=== PATIENT | male | born 1945 | race Caucasian/White ===

== ENCOUNTER 2017-01-18 10:47 | Inpatient (IN) | payer MEDICARE ==
[~2017-01-18] VITALS: Ht 185.4 cm; Wt 97.6 kg
[~2017-01-18 10:47] MED LIST: ASPI-612 PO; CIPR500T94 PO; LOVA40TA2 PO; MULT-460 PO; NAPR-677 PO; TAMS0.4C97 PO
[2017-01-18] MEDS ORDERED: IV NORMAL SALINE 1000ML BAG 1,000 ML IV SCH (11:01)
[2017-01-18 11:13] LABS: BASO % 1 % (0-3); EOS % 1 % (0-3); HEMATOCRIT 50.4 % (39.0-53.0); HEMOGLOBIN 16.6 g/dL (13.0-17.5); LYMPH # 2.5 x10^3/uL (1.0-4.8); LYMPH % 33 % (24-48); MEAN CORPUSCULAR HEMOGLOBIN 32 pg (25-35); MEAN CORPUSCULAR HGB CONC 33 g/dL (31-37); MEAN CORPUSCULAR VOLUME 96 fL (79-100); MONO % 8 % (0-9); NEUT % 57 % (31-73); PLATELET COUNT 243 x10^3/uL (140-400); RED BLOOD COUNT 5.25 x10^6/uL (4.30-5.70); RED CELL DISTRIBUTION WIDTH 13.4 % (11.5-14.5); WHITE BLOOD COUNT 7.4 x10^3/uL (4.0-11.0)
[2017-01-18] MEDS ORDERED: ASPIRIN CHEWABLE 81 MG TABLET. PO ONE (11:15)
[2017-01-18] MEDS ORDERED: 0.9 % SODIUM CHLORIDE 10 ML DISP.SYRIN. IV PRN (11:15)
--- NOTE | 2017-01-18 11:22 | RAD ---
Portable chest, 01/18/2017: History: Syncope on exertion Comparison is made to a study from 08/02/2015. A left-sided transvenous pacemaker remains in place with 2 leads extending into the right heart. The heart size and pulmonary vascularity are normal. No pulmonary infiltrates are seen. There is no evidence of pleural fluid. IMPRESSION: No acute cardiopulmonary abnormality is detected.
--- NOTE | 2017-01-18 11:25 | EKG ---
[facility] [address] [place] [address] Test Date: 2017-01-18 Test Time: 10:51:06 Pat Name: KELLY FAULKNER Department: Room: Gender: M Plant Guide: : 1945 Requested By: MACKENZIE GARZA Order Number: [id number] Reading MD: Franco Callahan MD Measurements Intervals [place] Rate: 73 P: 56 [place]: 196 QRS: 96 QRSD: 102 T: 83 QT: 416 QTc: 462 Interpretive Statements SINUS RHYTHM NON-SPECIFIC ST/T CHANGES Electronically Signed On 01-18-2017 16:07:32 MANAGER SEARCH ENGINE by Franco Callahan MD
[2017-01-18 11:31] LABS: CALCIUM 9.8 mg/dL (8.5-10.1); CREATININE 1.1 mg/dL (0.7-1.3); GFR 66.4; POTASSIUM 4.2 mmol/L (3.5-5.1)
[2017-01-18 11:34] LABS: ALBUMIN 3.8 g/dL (3.4-5.0); DIRECT BILIRUBIN 0.1 mg/dL (0.0-0.2); MAGNESIUM 2.1 mg/dL (1.8-2.4); TOTAL BILIRUBIN 0.8 mg/dL (0.2-1.0); TOTAL PROTEIN 7.6 g/dL (6.4-8.2)
[2017-01-18 11:46] LABS: CKMB MASS 1.1 ng/mL (0.0-3.6)
--- NOTE | 2017-01-18 11:48 | PHYS DOC ---
Past Medical History Past Medical History: High Cholesterol, Prostatitis Additional Past Medical Histor: syncope/sensitive vasovagal responses; nonsustained Vtach Past Surgical History: Tonsillectomy, TURP Additional Past Surgical Histo: Pacemaker, rotator cuff rx, bonita sx Alcohol Use: Occasionally Drug Use: None Adult General Chief Complaint Chief Complaint: Palpitations HPI HPI Patient is a pleasant 71-year-old male with a history of palpitations and cardiac disease presenting after during a Lexiscan stress test here in the hospital referred to the emergency department for question will palpitations and near-syncope. Patient develops and near-syncopal episode while exercising Lexiscan stress test. On the conclusion of the test patient's family went to the cafeteria to ingested food when he became lightheaded and dizzy and having palpitations with a heart rate greater than 180 while in the seated position. Patient did note some dyspnea with a sensation of palpitations and the palpitations have improved over time. The palpitations the pain was essentially located over the left breast with no radiation to the neck back and shoulder. He denies any numbness tingling or weakness, no nausea no vomiting no headache no focal neurologic deficits, no fevers no chills no URI symptoms. Patient had a pacemaker placed for symptom and bradycardia which is why he is being followed by cardiology. During the stress test it was evident that the pacemaker was actually capturing and overdrive pacing based on heart rate Review of Systems Review of Systems Constitutional: Denies fever or chills [] Eyes: Denies change in visual acuity, redness, or eye pain [] HENT: Denies nasal congestion or sore throat [] Respiratory: Denies cough he did complain of mild shortness of breath with the palpitations when it occurred. Cardiovascular: No additional information not addressed in HPI [] GI: Denies abdominal pain, nausea, vomiting, bloody stools or diarrhea [] : Denies dysuria or hematuria [] Musculoskeletal: Denies back pain or joint pain [] Integument: Denies rash or skin lesions [] Neurologic: Denies headache, he did complain of a near syncope with palpitations. Endocrine: Denies polyuria or polydipsia [] All other systems were reviewed and found to be within normal limits, except as documented in this note. Current Medications Current Medications Current Medications Medications (Trade) Dose Ordered Sig/Michele Start Time Stop Time Status Last Admin Dose Admin Aspirin (Children'S Aspirin) 324 mg 1X ONCE 01/18/17 11:15 01/18/17 11:16 DC 01/18/17 11:23 324 MG Ondansetron HCl (Zofran) 4 mg PRN Q8HRS PRN 01/18/17 12:30 01/19/17 12:29 Sodium Chloride 1,000 ml @ 100 mls/hr Q10H 01/18/17 12:28 01/19/17 12:27 Sodium Chloride (Normal Saline Flush) 10 ml QSHIFT PRN 01/18/17 11:15 Allergies Allergies Allergies Coded Allergies Type Severity Reaction Last Updated Verified No Known Drug Allergies 04/20/15 No Physical Exam Physical Exam Vital signs noted on the chart patient vital signs normal with exception of hypertension. Constitutional: Well developed, well nourished, no acute distress, non-toxic appearance. [] HENT: Normocephalic, atraumatic, bilateral external ears normal, oropharynx moist, no oral exudates, nose normal. [] Eyes: PERRLA, EOMI, conjunctiva normal, no discharge. [] Neck: Normal range of motion, no tenderness, supple, no stridor. [] Cardiovascular:Heart rate regular rhythm, no murmur no gallops or rubs Lungs & Thorax: Bilateral breath sounds clear to auscultation [] Abdomen: Bowel sounds normal, soft, no tenderness, no masses, no pulsatile masses. [] Skin: Warm, dry, no erythema, no rash. [] Back: No tenderness, no CVA tenderness. [] Extremities: No tenderness, no cyanosis, no clubbing, ROM intact, no edema. [] Neurologic: Alert and oriented X 3, normal motor function, normal sensory function, no focal deficits noted. [] Psychologic: Affect normal, judgement normal, mood normal. [] Current Patient Data Vital Signs Vital Signs Date Time Temp Pulse Resp B/P (MAP) Pulse Ox O2 Delivery O2 Flow Rate FiO2 01/18/17 10:48 97.6 78 18 140/92 (108) 100 Room Air 97.6 Lab Values Laboratory Tests Test 01/18/17 11:00 White Blood Count 7.4 x10^3/uL (4.0-11.0) Red Blood Count 5.25 x10^6/uL (4.30-5.70) Hemoglobin 16.6 g/dL (13.0-17.5) Hematocrit 50.4 % (39.0-53.0) Mean Corpuscular Volume 96 fL (79-100) Mean Corpuscular Hemoglobin 32 pg (25-35) Mean Corpuscular Hemoglobin Concent 33 g/dL (31-37) Red Cell Distribution Width 13.4 % (11.5-14.5) Platelet Count 243 x10^3/uL (140-400) Neutrophils (%) (Auto) 57 % (31-73) Lymphocytes (%) (Auto) 33 % (24-48) Monocytes (%) (Auto) 8 % (0-9) Eosinophils (%) (Auto) 1 % (0-3) Basophils (%) (Auto) 1 % (0-3) Neutrophils # (Auto) 4.2 x10^3uL (1.8-7.7) Lymphocytes # (Auto) 2.5 x10^3/uL (1.0-4.8) Monocytes # (Auto) 0.6 x10^3/uL (0.0-1.1) Eosinophils # (Auto) 0.1 x10^3/uL (0.0-0.7) Basophils # (Auto) 0.0 x10^3/uL (0.0-0.2) Sodium Level 141 mmol/L (136-145) Potassium Level 4.2 mmol/L (3.5-5.1) Chloride Level 103 mmol/L (98-107) Carbon Dioxide Level 27 mmol/L (21-32) Anion Gap 11 (6-14) Blood Urea Nitrogen 14 mg/dL (8-26) Creatinine 1.1 mg/dL (0.7-1.3) Estimated GFR (Cockcroft-Gault) 66.4 Glucose Level 107 mg/dL (70-99) H Calcium Level 9.8 mg/dL (8.5-10.1) Magnesium Level 2.1 mg/dL (1.8-2.4) Total Bilirubin 0.8 mg/dL (0.2-1.0) Direct Bilirubin 0.1 mg/dL (0.0-0.2) Aspartate Amino Transferase (AST) 30 U/L (15-37) Alanine Aminotransferase (ALT) 43 U/L (16-63) Alkaline Phosphatase 86 U/L (46-116) Creatine Kinase 97 U/L (39-308) Creatine Kinase MB (Mass) 1.1 ng/mL (0.0-3.6) Creatine Kinase MB Relative Index 1.1 % (0-4) Troponin I Quantitative < 0.017 ng/mL (0.000-0.055) UC-Uce-P-Type Natriuretic Peptide 20 pg/mL (0-124) Total Protein 7.6 g/dL (6.4-8.2) Albumin 3.8 g/dL (3.4-5.0) Lipase 62 U/L (73-393) L Thyroid Stimulating Hormone (TSH) 4.424 uIU/mL (0.358-3.74) H Laboratory Tests 01/18/17 11:00 Laboratory Tests 01/18/17 11:00 EKG EKG []EKG timed 10:51 AM 01/18/2017 read by me demonstrate a heart rate of 73 there is a p wave for every QRS is normal sinus rhythm there is slight right axis deviation but no ST segment or T-wave changes consistent with acute cardiac ischemia. Patient's MO interval 196 which is normal, QRS width is 102 which is normal, QTC is 462 which is also normal. Radiology/Procedures Radiology/Procedures [] [address] [place], [place] [id number] IMAGING REPORT Signed PATIENT: KELLY FAULKNER ACCOUNT: [id number] : 1945 LOCATION: ER AGE: 71 SEX: M EXAM STATUS: REG ER ORD. PHYSICIAN: AMCKENZIE GARZA MD REASON: syncope on exertion PROCEDURE: PORTABLE CHEST 1V Portable chest, 01/18/2017: History: Syncope on exertion Comparison is made to a study from 08/02/2015. A left-sided transvenous pacemaker remains in place with 2 leads extending into the right heart. The heart size and pulmonary vascularity are normal. No pulmonary infiltrates are seen. There is no evidence of pleural fluid. IMPRESSION: No acute cardiopulmonary abnormality is detected. DICTATED and SIGNED BY: LINDY WATT MD DATE: 01/18/17 6815 CC: MACKENZIE GARZA MD; RAJWINDER IBRAHIM Jr, MD ~ Course & Med Decision Making Course & Med Decision Making Pertinent Labs and Imaging studies reviewed. (See chart for details) patient presents with exertional syncope while going through stress test. Patient noted to have a history of hypertension, hyperlipidemia and prior heart disease requiring pacemaker placement he was noted to have nonsustained V. tach and her evaluation. Cardiology is aware of this patient will need to admit him to the hospital.My syncope differential includes but not limited to: Neurally mediated vasovagal syncope, situational syncope, cardiac sinus syncope , orthostatic hypertension, medications, psychiatric interventions, neurologic syncope, cardiogenic syncopal B, to include organic heart disease congestive heart failure, cardiac dysrhythmia, seizure disorder, stroke or transient ischemic attack, bradycardia dysrhythmias, tachycardia dysrhythmias, PT, V. fib V. fib, cardiac abnormalities like first degree secondary third-degree AV blocks , prolonged QT, hypertrophic Binh myopathy, severe pulmonic stenosis, pulmonary arterial hypertension, atrial myxomas, aortic stenosis, valvular failure, alcohol consumption, adrenal insufficiency, drug effects from things like antidepressants, antihypertensive agents like beta blockers, vasodilators including calcium channel blockers and nitrates, autonomic insufficiency. Considered upon arrival based on patient's heart disease and interventions or any inactive patient will need catheterization to rule out structural disease within the heart. Patient's initial troponin at approximately 12 PM, magnesium level, CMP, CBC are all normal. Patient's TSH is mildly elevated for 4.5.2 which may be determining to his tachycardia but he does look like he is in thyroid crisis. Patient states he has no other symptoms associate with hyperthyroidism. Physician Chief Of Pathology note: Dr. guerrero Physician Chief Of Pathology called at of the service medicine service called at 12:30 PM Consult called back at 12:32 PM Discussed the case I presented and they agreed with admission. Time of acceptance 12:32 PM he will have his pacemaker interrogated since to Medtronic device he'll be admitted to the hospital and seen by cardiology. Consultation cardiology on- call doctor Katlyn [] Norman Disclaimer Norman Disclaimer This electronic medical record was generated, in whole or in part, using a voice recognition dictation system. Departure Departure Impression: Primary Impression: Syncope Additional Impression: Palpitation Disposition: ADMITTED INPATIENT Admitting Physician: Valerie Guerrero Condition: GUARDED Referrals: RAJWINDER IBRAHIM Jr, MD (PCP) Problem Qualifiers MACKENZIE GARZA MD Jan 18, 2017 11:48
[2017-01-18] MEDS: IV NORMAL SALINE 1000ML BAG 1,000 ML IV SCH ×2 (12:28→22:28)
[2017-01-18] MEDS ORDERED: ONDANSETRON PF 4 MG/2 ML VIAL. IV PRN (12:30)
[2017-01-18 12:31] LABS: BILIRUBIN,URINE NEGATIVE (NEG); GLUCOSE,URINE NEGATIVE (NEG); NITRITE,URINE NEGATIVE (NEG); PROTEIN,URINE NEGATIVE (NEG-TRACE)
--- NOTE | 2017-01-18 12:41 | PDOC2 ---
BAKARI LOWE GARAGE SUPERVISOR 01/18/17 1241: CARDIAC CONSULT DATE OF CONSULT Date of Consult DATE: 01/18/17 TIME: 12:40 REASON FOR CONSULT Reason for Consult: exertional syncope REFERRING PHYSICIAN Referring Physician: Dayanna SOURCE Source: Caregiver (spouse), Chart review, Patient HISTORY OF PRESENT ILLNESS HISTORY OF PRESENT ILLNESS This is a pleasant 71 yo male admitted for complains of palpitations and syncope. Pt reports of having stress test today. He finished his stress test and was instructed to go to cafeteria to eat per post stress test protocol when he felt flushed and felt that he was going to passed out. Also this occurred during the stress portion of the test. Per staff he was noted with HR in the 180s but no tele strips to support that. He was eating when felt lightheaded and dizzy while in a sitting position. Positive for dyspnea during this event but no CP. Denies any nausea. This has not happenede to him before. He does have a pacemaker due to symptomatic bradycardia in the past but notable hx of AFIB. No prior CAD, VTE, falls or any injury. PAST MEDICAL HISTORY Cardiovascular: Syncope (vasovagal), Hyperlipidemia, Other (sss) Psych: No pertinent hx Musculoskeletal: Osteoarthritis Renal/: Benign prostatic enlarg. PAST SURGICAL HISTORY Past Surgical History: Pacemaker, Other (TURP; left ankle surgery ) FAMILY HISTORY Family History noncontributory to CV SOCIAL HISTORY Smoke: No ALCOHOL: none Drugs: None Lives: with Family CURRENT MEDICATIONS CURRENT MEDICATIONS Current Medications Medications (Trade) Dose Ordered Sig/Michele Route PRN Reason Start Time Stop Time Status Last Admin Dose Admin Aspirin (Children'S Aspirin) 324 mg 1X ONCE PO 01/18/17 11:15 01/18/17 11:16 DC 01/18/17 11:23 Sodium Chloride 1,000 ml @ 1,000 mls/hr Q1H IV 01/18/17 11:01 01/18/17 12:00 DC 01/18/17 11:23 ALLERGIES ALLERGIES: Coded Allergies: No Known Drug Allergies (Unverified , 04/20/15) ROS Review of System 14 point ROS evaluated with pertinent positives noted per HPI PHYSICAL EXAM General: Alert, Oriented X3, Cooperative, No acute distress HEENT: Atraumatic, Mucous membr. moist/pink Lungs: Clear to auscultation, Normal air movement Heart: Regular rate (sinus tach), Normal S1, Normal S2, No murmurs Abdomen: Soft, No tenderness Extremities: No cyanosis, No edema Skin: No breakdown, No significant lesion Neuro: Normal speech, Sensation intact Psych/Mental Status: Mental status NL, Mood NL MUSCULOSKELETAL: Osteoarthritic changes both hands VITALS VITALS Vital Signs Date Time Temp Pulse Resp B/P (MAP) Pulse Ox O2 Delivery O2 Flow Rate FiO2 01/18/17 10:48 97.6 78 18 140/92 (108) 100 Room Air 97.6 LABS Lab: Laboratory Tests Test 01/18/17 11:00 White Blood Count 7.4 x10^3/uL (4.0-11.0) Red Blood Count 5.25 x10^6/uL (4.30-5.70) Hemoglobin 16.6 g/dL (13.0-17.5) Hematocrit 50.4 % (39.0-53.0) Mean Corpuscular Volume 96 fL (79-100) Mean Corpuscular Hemoglobin 32 pg (25-35) Mean Corpuscular Hemoglobin Concent 33 g/dL (31-37) Red Cell Distribution Width 13.4 % (11.5-14.5) Platelet Count 243 x10^3/uL (140-400) Neutrophils (%) (Auto) 57 % (31-73) Lymphocytes (%) (Auto) 33 % (24-48) Monocytes (%) (Auto) 8 % (0-9) Eosinophils (%) (Auto) 1 % (0-3) Basophils (%) (Auto) 1 % (0-3) Neutrophils # (Auto) 4.2 x10^3uL (1.8-7.7) Lymphocytes # (Auto) 2.5 x10^3/uL (1.0-4.8) Monocytes # (Auto) 0.6 x10^3/uL (0.0-1.1) Eosinophils # (Auto) 0.1 x10^3/uL (0.0-0.7) Basophils # (Auto) 0.0 x10^3/uL (0.0-0.2) Sodium Level 141 mmol/L (136-145) Potassium Level 4.2 mmol/L (3.5-5.1) Chloride Level 103 mmol/L (98-107) Carbon Dioxide Level 27 mmol/L (21-32) Anion Gap 11 (6-14) Blood Urea Nitrogen 14 mg/dL (8-26) Creatinine 1.1 mg/dL (0.7-1.3) Estimated GFR (Cockcroft-Gault) 66.4 Glucose Level 107 mg/dL (70-99) Calcium Level 9.8 mg/dL (8.5-10.1) Magnesium Level 2.1 mg/dL (1.8-2.4) Total Bilirubin 0.8 mg/dL (0.2-1.0) Direct Bilirubin 0.1 mg/dL (0.0-0.2) Aspartate Amino Transf (AST/SGOT) 30 U/L (15-37) Alanine Aminotransferase (ALT/SGPT) 43 U/L (16-63) Alkaline Phosphatase 86 U/L (46-116) Creatine Kinase 97 U/L (39-308) Creatine Kinase MB (Mass) 1.1 ng/mL (0.0-3.6) Creatine Kinase MB Relative Index 1.1 % (0-4) Troponin I Quantitative < 0.017 ng/mL (0.000-0.055) GS-Iib-C-Type Natriuretic Peptide 20 pg/mL (0-124) Total Protein 7.6 g/dL (6.4-8.2) Albumin 3.8 g/dL (3.4-5.0) Lipase 62 U/L (73-393) Thyroid Stimulating Hormone (TSH) 4.424 uIU/mL (0.358-3.74) ECHOCARDIOGRAM ECHOCARDIOGRAM <Conclusion> Left ventricle systolic function is normal. The Ejection Fraction is 60-65%. There is normal LV segmental wall motion. Trace mitral regurgitation. Trace tricuspid regurgitation. The PA pressure was estimated at 28 mmHg. There is no evidence of significant pericardial effusion. DATE: 01/18/17 3503 ASSESSMENT/PLAN ASSESSMENT/PLAN 1. Presyncope with likely SVT: no strip recorded post stress test 2. PPM insitu: medtronic due to symptomatic bradycardia 3. Hx of vasovagal syncope 4. HLP 5. Subclinical hypothyroidism Recommendations 1. Metoprolol x1 2. TTE, Interrogate device. Await MPI results. Problems: DANIELA YAN MD 01/18/17 3029: CARDIAC CONSULT ALLERGIES ALLERGIES: Coded Allergies: No Known Drug Allergies (Unverified , 04/20/15) ASSESSMENT/PLAN ASSESSMENT/PLAN Patient seen and examined. Agree with RESEARCH MANAGER's assessment and plan. Lexiscan nuclear stress test did not show any significant ischemia. 2-D echo showed normal LV function. Near syncope appears to be vagally mediated but cannot rule out SVT/PMT We will have his pacemaker interrogated for further evaluation. Thank you for your consultation. Problems: BAKARI LOWE APRN Jan 18, 2017 12:41 DANIELA YAN MD Jan 18, 2017 15:59
[2017-01-18 12:43] LABS: BACTERIA,URINE 0 /HPF (0-FEW); RBC,URINE 0 /HPF (0-2); WBC,URINE OCC /HPF (0-4)
[2017-01-18] MEDS ORDERED: METOPROLOL TART IMMED RELEASE 25 MG TABLET. PO ONE ×2 (12:45→17:15)
[2017-01-18 14:00] VITALS: BP 157/86
[2017-01-18 15:00] VITALS: BP 132/85
--- NOTE | 2017-01-18 15:50 | CARD ---
APPROVED REPORT EXAM: Two-dimensional and M-mode echocardiogram with Doppler and color Doppler. Other Information Quality : Average Rhythm : Pacemaker INDICATION Arrhythmia Pre-syncope 2D DIMENSIONS RVDd3.1 (2.9-3.5cm)Left Atrium(2D)3.0 (1.6-4.0cm) IVSd1.2 (0.7-1.1cm)Aortic Root(2D)3.3 (2.0-3.7cm) LVDd4.6 (3.9-5.9cm)LVOT Diameter2.4 (1.8-2.4cm) PWd1.2 (0.7-1.1cm)LVDs2.7 (2.5-4.0cm) FS (%) 30.4 %SV69.0 ml LVEF(%)61.2 (>50%) Aortic Valve AoV Peak Cordell.91.7cm/sAoV VTI19.6cm AO Peak GR.3.4mmHgLVOT Peak Cordell.79.4cm/s LVOT VTI 16.26cmAO Mean GR.2mmHg NAVARRO (VMAX)3.05cg1DYO (VTI)3.68cm2 Mitral Valve MV DECEL [id number] AVJ99xo MVA (PHT)5.38cm2 Pulmonary Valve PV Peak Czwnacgh20.4cm/sPV Peak Grad.3mmHg RVOT VTI12.7cm Tricuspid Valve TR P. [id number]/sRAP [id number] TR Peak Gr.96dcNdCVFB40cqRk LEFT VENTRICLE The left ventricle is normal size. There is borderline concentric left ventricular hypertrophy. Left ventricle systolic function is normal. The Ejection Fraction is 60-65%. There is normal LV segmental wall motion. Tissue Doppler imaging reveals mild left ventricular diastolic dysfunction. There is no ventricular septal defect visualized. RIGHT VENTRICLE The right ventricle is normal size. The right ventricular systolic function is normal. There is a pac emaker lead seen in the right ventricle and atrium. ATRIA The left atrium size is normal. The right atrium size is normal. The interatrial septum is intact wit h no evidence for an atrial septal defect or patent foramen ovale as noted on 2-D or Doppler imaging. AORTIC VALVE The aortic valve is normal in structure and function. The aortic valve is trileaflet. Doppler and Col or Flow revealed no significant aortic regurgitation. There is no significant aortic valvular stenosi s. MITRAL VALVE The mitral valve is normal in structure and function. There is no mitral valve stenosis. Doppler and Color Flow revealed trace mitral regurgitation. TRICUSPID VALVE The tricuspid valve is not well visualized. Doppler and Color Flow revealed trace tricuspid regurgita tion. The PA pressure was estimated at 28 mmHg. There is no tricuspid valve stenosis. PULMONIC VALVE The pulmonic valve is not well visualized. Doppler and Color Flow revealed no pulmonic valvular regur gitation. There is no pulmonic valvular stenosis. GREAT VESSELS The aortic root is normal in size. Pulmonary vein flow not well visualized. The IVC is normal in size and collapses >50% with inspiration. PERICARDIAL EFFUSION There is no evidence of significant pericardial effusion. Critical Notification Critical Value: No <Conclusion> Left ventricle systolic function is normal. The Ejection Fraction is 60-65%. There is normal LV segmental wall motion. Trace mitral regurgitation. Trace tricuspid regurgitation. The PA pressure was estimated at 28 mmHg. There is no evidence of significant pericardial effusion.
--- NOTE | 2017-01-18 17:13 | PDOC1 ---
History and Physical Date of Admission Date of Admission DATE: 01/18/17 TIME: 17:09 Identification/Chief Complaint Chief Complaint tachycardia, palpitations, almost passing out Problems: Source Source: Chart review History of Present Illness History of Present Illness Mr. James, is a pleasant 71-year-old male with a history of palpitations and cardiac disease Admit after near syncope at [facility] stress, tachycardia 170s after test, he was lightheaded and dizzy and having palpitations with a heart rate greater than 180 while in the seated position. he now feels improved on the 2s unit, tele 70s to 105 appears sinus no recent travel or other symptoms Patient had a pacemaker placed for symptom and bradycardia which is why he is being followed by cardiology. 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 Past Surgical History Past Surgical History: Pacemaker, Other (TURP; left ankle surgery ) Family History Family History: No Significant Social History Smoke: No ALCOHOL: none Drugs: None Current Problem List Problem List Problems Medical Problems: (1) Palpitation Status: Acute (2) Syncope Status: Acute Problems: Current Medications Current Medications Current Medications Aspirin (Children'S Aspirin) 324 mg 1X ONCE PO Last administered on 11:23; Start 01/18/17 at 11:15; Stop 01/18/17 at 11:16; Status DC Sodium Chloride 1,000 ml @ 1,000 mls/hr Q1H IV Last administered on 11:23; Start 01/18/17 at 11:01; Stop 01/18/17 at 12:00; Status DC Sodium Chloride (Normal Saline Flush) 10 ml QSHIFT PRN IV AFTER MEDS AND BLOOD DRAWS; Start 01/18/17 at 11:15 Ondansetron HCl (Zofran) 4 mg PRN Q8HRS PRN IV NAUSEA/VOMITING; Start at 12:30; Stop 01/19/17 at 12:29 Sodium Chloride 1,000 ml @ 100 mls/hr Q10H IV ; Start 01/18/17 at 12:28; Stop 01/19/17 at 12:27 Metoprolol Tartrate (Lopressor) 25 mg 1X ONCE PO ; Start 01/18/17 at 12:45; Stop 01/18/17 at 12:46; Status DC Aspirin (Ecotrin) 81 mg DAILY PO ; Start 01/19/17 at 09:00 Tamsulosin HCl (Flomax) 0.8 mg HS PO ; Start 01/18/17 at 21:00 Atorvastatin Calcium (Lipitor) 10 mg QHS PO ; Start 01/18/17 at 21:00 Multivitamins (Thera M Plus) 1 tab DAILY PO ; Start 01/19/17 at 09:00 Metoprolol Tartrate (Lopressor) 25 mg 1X ONCE PO ; Start 01/18/17 at 17:15; Stop 01/18/17 at 17:16 Active Scripts Active Aspirin Ec (Aspirin) 81 Mg Tablet.dr 81 Mg PO DAILY Reported Naproxen Sodium 550 Mg Tablet 550 Mg PO PRN Multiple Vitamin (Multivitamin With Minerals) 1 Each Tablet 1 Each PO DAILY Flomax (Tamsulosin Hcl) 0.4 Mg Cap.er.24h 2 Cap PO HS Lovastatin 40 Mg Tablet 1 Tab PO DAILY Allergies Allergies: Coded Allergies: No Known Drug Allergies (Unverified , 04/20/15) ROS General: No: Chills, Night Sweats, Fatigue, Malaise, Appetite, Other PSYCHOLOGICAL ROS: No: Anxiety, Behavioral Disorder, Concentration difficultie , Decreased libido, Depression, Disorientation, Hallucinations, Hostility, Irritablity, Memory difficulties, Mood Swings, Obsessive thoughts, Physical abuse, Sexual abuse, Sleep disturbances, Suicidal ideation, Other Eyes: No Blurry vision, No Decreased vision, No Double vision, No Dry eyes, No Excessive tearing, No Eye Pain, No Itchy Eyes, No Loss of vision, No Photophobia , No Scotomata, No Uses contacts, No Uses glasses, No Other HEENT: No: Heacaches, Visual Changes, Hearing change, Nasal congestion, Nasal discharge, Oral lesions, Sinus pain, Sore Throat, Epistaxis, Sneezing, Snoring, Tinnitus, Vertigo, Vocal changes, Other Hematological and Lymphatic: No: Bleeding Problems, Blood Clots, Blood Transfusions, Brusing, Night Sweats, Pallor, Swollen Lymph Nodes, Other Respiratory: No: Cough, Hemoptysis, Orthopnea, Pleuritic Pain, Shortness of breath, SOB with excertion, Sputum Changes, Stridor, Tachypnea, Wheezing, Other Cardiovascular: No Chest Pain, No Palpitations, No Orthopnea, No Paroxysmal Noc. Dyspnea, No Edema, No Lt Headedness, No Other Gastrointestinal: No Nausea, No Vomiting, No Abdominal Pain, No Diarrhea, No Constipation, No Melena, No Hematochezia, No Other Genitourinary: No Dysuria, No Frequency, No Incontinence, No Hematuria, No Retention, No Discharge, No Urgency, No Pain, No Flank Pain, No Other, No , No , No , No , No , No , No Musculoskeletal: Yes Joint Stiffness, No Gait Disturbance, No Joint Pain, No Joint Swelling, No Muscle Pain, No Muscular Weakness, No Pain In:, No Swelling In:, No Other Neurological: No Behavorial Changes, No Bowel/Bladder ControlChng, No Confusion , No Dizziness, No Gait Disturbance, No Headaches, No Impaired Coord/balance, No Memory Loss, No Numbness/Tingling, No Seizures, No Speech Problems, No Tremors, No Visual Changes, No Weakness, No Other Skin: No Dry Skin, No Eczema, No Hair Changes, No Lumps, No Mole Changes, No Mottling, No Nail Changes, No Pruritus, No Rash, No Skin Lesion Changes, No Other, No Acne Physical Exam General: Alert, Cooperative, No acute distress HEENT: PERRLA, EOMI, Mucous membr. moist/pink Lungs: Clear to auscultation Heart: S1S2 Abdomen: Normal bowel sounds Male Genitals Exam: normal genitalia Extremities: No clubbing, No cyanosis, No edema Skin: No rashes, No breakdown Neuro: Normal speech, Normal tone, Sensation intact Psych/Mental Status: Mental status NL Vitals Vitals Vital Signs Date Time Temp Pulse Resp B/P (MAP) Pulse Ox O2 Delivery O2 Flow Rate FiO2 01/18/17 15:00 97.7 105 18 132/85 (101) 95 Room Air 97.7 Labs Labs Laboratory Tests Test 01/18/17 11:00 01/18/17 12:20 White Blood Count 7.4 x10^3/uL (4.0-11.0) Red Blood Count 5.25 x10^6/uL (4.30-5.70) Hemoglobin 16.6 g/dL (13.0-17.5) Hematocrit 50.4 % (39.0-53.0) Mean Corpuscular Volume 96 fL (79-100) Mean Corpuscular Hemoglobin 32 pg (25-35) Mean Corpuscular Hemoglobin Concent 33 g/dL (31-37) Red Cell Distribution Width 13.4 % (11.5-14.5) Platelet Count 243 x10^3/uL (140-400) Neutrophils (%) (Auto) 57 % (31-73) Lymphocytes (%) (Auto) 33 % (24-48) Monocytes (%) (Auto) 8 % (0-9) Eosinophils (%) (Auto) 1 % (0-3) Basophils (%) (Auto) 1 % (0-3) Neutrophils # (Auto) 4.2 x10^3uL (1.8-7.7) Lymphocytes # (Auto) 2.5 x10^3/uL (1.0-4.8) Monocytes # (Auto) 0.6 x10^3/uL (0.0-1.1) Eosinophils # (Auto) 0.1 x10^3/uL (0.0-0.7) Basophils # (Auto) 0.0 x10^3/uL (0.0-0.2) Sodium Level 141 mmol/L (136-145) Potassium Level 4.2 mmol/L (3.5-5.1) Chloride Level 103 mmol/L (98-107) Carbon Dioxide Level 27 mmol/L (21-32) Anion Gap 11 (6-14) Blood Urea Nitrogen 14 mg/dL (8-26) Creatinine 1.1 mg/dL (0.7-1.3) Estimated GFR (Cockcroft-Gault) 66.4 Glucose Level 107 mg/dL (70-99) Calcium Level 9.8 mg/dL (8.5-10.1) Magnesium Level 2.1 mg/dL (1.8-2.4) Total Bilirubin 0.8 mg/dL (0.2-1.0) Direct Bilirubin 0.1 mg/dL (0.0-0.2) Aspartate Amino Transf (AST/SGOT) 30 U/L (15-37) Alanine Aminotransferase (ALT/SGPT) 43 U/L (16-63) Alkaline Phosphatase 86 U/L (46-116) Creatine Kinase 97 U/L (39-308) Creatine Kinase MB (Mass) 1.1 ng/mL (0.0-3.6) Creatine Kinase MB Relative Index 1.1 % (0-4) Troponin I Quantitative < 0.017 ng/mL (0.000-0.055) RH-Xff-U-Type Natriuretic Peptide 20 pg/mL (0-124) Total Protein 7.6 g/dL (6.4-8.2) Albumin 3.8 g/dL (3.4-5.0) Lipase 62 U/L (73-393) Thyroid Stimulating Hormone (TSH) 4.424 uIU/mL (0.358-3.74) Urine Collection Type Unknown Urine Color Yellow Urine Clarity Cloudy Urine pH 6.0 Urine Specific [place] 1.020 Urine Protein Negative mg/dL (NEG-TRACE) Urine Glucose (UA) Negative mg/dL (NEG) Urine Ketones (Stick) Negative mg/dL (NEG) Urine Blood Negative (NEG) Urine Nitrite Negative (NEG) Urine Bilirubin Negative (NEG) Urine Urobilinogen Dipstick 1.0 mg/dL (0.2 mg/dL) Urine Leukocyte Esterase Negative (NEG) Urine RBC 0 /HPF (0-2) Urine WBC Occ /HPF (0-4) Urine Bacteria 0 /HPF (0-FEW) Urine Mucus Marked /LPF Laboratory Tests Test 01/18/17 11:00 01/18/17 12:20 White Blood Count 7.4 x10^3/uL (4.0-11.0) Red Blood Count 5.25 x10^6/uL (4.30-5.70) Hemoglobin 16.6 g/dL (13.0-17.5) Hematocrit 50.4 % (39.0-53.0) Mean Corpuscular Volume 96 fL (79-100) Mean Corpuscular Hemoglobin 32 pg (25-35) Mean Corpuscular Hemoglobin Concent 33 g/dL (31-37) Red Cell Distribution Width 13.4 % (11.5-14.5) Platelet Count 243 x10^3/uL (140-400) Neutrophils (%) (Auto) 57 % (31-73) Lymphocytes (%) (Auto) 33 % (24-48) Monocytes (%) (Auto) 8 % (0-9) Eosinophils (%) (Auto) 1 % (0-3) Basophils (%) (Auto) 1 % (0-3) Neutrophils # (Auto) 4.2 x10^3uL (1.8-7.7) Lymphocytes # (Auto) 2.5 x10^3/uL (1.0-4.8) Monocytes # (Auto) 0.6 x10^3/uL (0.0-1.1) Eosinophils # (Auto) 0.1 x10^3/uL (0.0-0.7) Basophils # (Auto) 0.0 x10^3/uL (0.0-0.2) Sodium Level 141 mmol/L (136-145) Potassium Level 4.2 mmol/L (3.5-5.1) Chloride Level 103 mmol/L (98-107) Carbon Dioxide Level 27 mmol/L (21-32) Anion Gap 11 (6-14) Blood Urea Nitrogen 14 mg/dL (8-26) Creatinine 1.1 mg/dL (0.7-1.3) Estimated GFR (Cockcroft-Gault) 66.4 Glucose Level 107 mg/dL (70-99) Calcium Level 9.8 mg/dL (8.5-10.1) Magnesium Level 2.1 mg/dL (1.8-2.4) Total Bilirubin 0.8 mg/dL (0.2-1.0) Direct Bilirubin 0.1 mg/dL (0.0-0.2) Aspartate Amino Transf (AST/SGOT) 30 U/L (15-37) Alanine Aminotransferase (ALT/SGPT) 43 U/L (16-63) Alkaline Phosphatase 86 U/L (46-116) Creatine Kinase 97 U/L (39-308) Creatine Kinase MB (Mass) 1.1 ng/mL (0.0-3.6) Creatine Kinase MB Relative Index 1.1 % (0-4) Troponin I Quantitative < 0.017 ng/mL (0.000-0.055) XT-Kfl-L-Type Natriuretic Peptide 20 pg/mL (0-124) Total Protein 7.6 g/dL (6.4-8.2) Albumin 3.8 g/dL (3.4-5.0) Lipase 62 U/L (73-393) Thyroid Stimulating Hormone (TSH) 4.424 uIU/mL (0.358-3.74) Urine Collection Type Unknown Urine Color Yellow Urine Clarity Cloudy Urine pH 6.0 Urine Specific [place] 1.020 Urine Protein Negative mg/dL (NEG-TRACE) Urine Glucose (UA) Negative mg/dL (NEG) Urine Ketones (Stick) Negative mg/dL (NEG) Urine Blood Negative (NEG) Urine Nitrite Negative (NEG) Urine Bilirubin Negative (NEG) Urine Urobilinogen Dipstick 1.0 mg/dL (0.2 mg/dL) Urine Leukocyte Esterase Negative (NEG) Urine RBC 0 /HPF (0-2) Urine WBC Occ /HPF (0-4) Urine Bacteria 0 /HPF (0-FEW) Urine Mucus Marked /LPF VTE Prophylaxis Ordered VTE Prophylaxis Devices: Yes VTE Pharmacological Prophylaxi: No Assessment/Plan Assessment/Plan tachycardia, dyspnea at stress test, HR 170, likely SVT prior pacemaker placement, has seen EP before, now intermittent tachycardia, pacer interrogation done CV consult, will start b-veronika admitted SLIM KNIGHT MD Jan 18, 2017 17:13
[2017-01-18 19:05] VITALS: BP 124/82
[2017-01-18] MEDS ORDERED: PNEUMOC CONJ VACC 23-VALENT 0.5 ML VIAL. VAX IM ONE (19:30)
[2017-01-18] MEDS ORDERED: FLU VACC QS2017-18 (36MOS+)/PF 0.5 ML SYRINGE. VAX IM ONE (19:30)
[2017-01-18] MEDS ORDERED: ATORVASTATIN CALCIUM 10 MG TABLET. PO SCH (21:00)
[2017-01-18] MEDS ORDERED: TAMSULOSIN 0.4 MG CAP.ER.24H. PO SCH (21:00)
[2017-01-18 23:00] VITALS: BP 122/69
[2017-01-19 03:00] VITALS: BP 133/76
[2017-01-19 05:33] LABS: BASO # 0.1 x10^3/uL (0.0-0.2); BASO % 1 % (0-3); EOS % 2 % (0-3); HEMATOCRIT 46.7 % (39.0-53.0); HEMOGLOBIN 15.5 g/dL (13.0-17.5); LYMPH # 2.2 x10^3/uL (1.0-4.8); LYMPH % 33 % (24-48); MEAN CORPUSCULAR HEMOGLOBIN 32 pg (25-35); MEAN CORPUSCULAR HGB CONC 33 g/dL (31-37); MEAN CORPUSCULAR VOLUME 95 fL (79-100); MONO % 9 % (0-9); NEUT % 55 % (31-73); PLATELET COUNT 224 x10^3/uL (140-400); RED CELL DISTRIBUTION WIDTH 13.1 % (11.5-14.5); WHITE BLOOD COUNT 6.8 x10^3/uL (4.0-11.0)
[2017-01-19 06:17] LABS: ALBUMIN 3.5 g/dL (3.4-5.0); CALCIUM 9.2 mg/dL (8.5-10.1); CREATININE 0.9 mg/dL (0.7-1.3); GFR 83.7; TOTAL BILIRUBIN 0.6 mg/dL (0.2-1.0); TOTAL PROTEIN 7.1 g/dL (6.4-8.2)
[2017-01-19 07:00] VITALS: BP 161/91
[2017-01-19] MEDS: IV NORMAL SALINE 1000ML BAG 1,000 ML IV SCH (08:17)
[2017-01-19] MEDS ORDERED: ASPIRIN ENTERIC COATED 81 MG TABLET.DR. PO SCH (09:00)
[2017-01-19] MEDS ORDERED: MULTIVITAMIN with MINERAL TABLET. PO SCH (09:00)
[2017-01-19 11:00] VITALS: BP 151/91
[2017-01-19] MEDS ORDERED: METO25TA4 PO (12:18)
[2017-01-19] MEDS ORDERED: METOPROLOL TART IMMED RELEASE 25 MG TABLET. PO ONE (12:30)
[2017-01-19] MEDS ORDERED: METO-239 PO (13:53)
[2017-01-19] MEDS ORDERED: METOPROLOL SUCC 24HR ER 25 MG TAB.ER.24H. PO SCH (14:00)
--- NOTE | 2017-01-19 14:06 | PDOC ---
CARDIO Progress Notes Date and Time Date of Service 01/19/2017 Time of Evaluation 1300 Subjective Subjective: No Chest Pain, No shortness of breath, No Palpitations, No Dizziness Vitals Vitals Vital Signs Date Time Temp Pulse Resp B/P (MAP) Pulse Ox O2 Delivery O2 Flow Rate FiO2 01/19/17 11:00 97.9 105 20 151/91 (111) 94 Room Air 97.9 Weight Weight [ ] Input and Output Intake and Output Intake and Output 01/19/17 07:00 Intake Total 1950 ml Output Total 475 ml Balance 1475 ml Intake Oral 950 ml IV Total 1000 ml Output Urine Total 475 ml # Voids 4 Laboratory Labs Laboratory Tests Test 01/18/17 19:00 01/19/17 00:45 01/19/17 04:45 Troponin I Quantitative < 0.017 ng/mL (0.000-0.055) < 0.017 ng/mL (0.000-0.055) White Blood Count 6.8 x10^3/uL (4.0-11.0) Red Blood Count 4.90 x10^6/uL (4.30-5.70) Hemoglobin 15.5 g/dL (13.0-17.5) Hematocrit 46.7 % (39.0-53.0) Mean Corpuscular Volume 95 fL (79-100) Mean Corpuscular Hemoglobin 32 pg (25-35) Mean Corpuscular Hemoglobin Concent 33 g/dL (31-37) Red Cell Distribution Width 13.1 % (11.5-14.5) Platelet Count 224 x10^3/uL (140-400) Neutrophils (%) (Auto) 55 % (31-73) Lymphocytes (%) (Auto) 33 % (24-48) Monocytes (%) (Auto) 9 % (0-9) Eosinophils (%) (Auto) 2 % (0-3) Basophils (%) (Auto) 1 % (0-3) Neutrophils # (Auto) 3.8 x10^3uL (1.8-7.7) Lymphocytes # (Auto) 2.2 x10^3/uL (1.0-4.8) Monocytes # (Auto) 0.6 x10^3/uL (0.0-1.1) Eosinophils # (Auto) 0.2 x10^3/uL (0.0-0.7) Basophils # (Auto) 0.1 x10^3/uL (0.0-0.2) Sodium Level 140 mmol/L (136-145) Potassium Level 4.0 mmol/L (3.5-5.1) Chloride Level 104 mmol/L (98-107) Carbon Dioxide Level 27 mmol/L (21-32) Anion Gap 9 (6-14) Blood Urea Nitrogen 14 mg/dL (8-26) Creatinine 0.9 mg/dL (0.7-1.3) Estimated GFR (Cockcroft-Gault) 83.7 BUN/Creatinine Ratio 16 (6-20) Glucose Level 102 mg/dL (70-99) Calcium Level 9.2 mg/dL (8.5-10.1) Total Bilirubin 0.6 mg/dL (0.2-1.0) Aspartate Amino Transf (AST/SGOT) 24 U/L (15-37) Alanine Aminotransferase (ALT/SGPT) 38 U/L (16-63) Alkaline Phosphatase 79 U/L (46-116) Total Protein 7.1 g/dL (6.4-8.2) Albumin 3.5 g/dL (3.4-5.0) Albumin/Globulin Ratio 1.0 (1.0-1.7) Physical Exam HEENT: Neck Supple W Full Motion Chest: Symmetric LUNGS: Clear to Auscultation Heart: S1S2, RRR (SR) Abdomen: Soft N/T Extremities: No Edema, No Calf Tenderness Neurology: alert, oriented, follow commands Assessment Assessment 1. Presyncope: reviewed interrogation report but no significant tachyarrhythmias. Device functioning is normal Presyncope symptoms occurred during stress portion of the stress test 4 minutes post jose and while eating. No recorded SVTs was found while in nuc med. Overnight no SVTs but noted with HR in the 100-110 while at rest with mildly elevated BP TTE and MPI are unremarkable for significant changes. Possible reflexive issue as well as inappropriate sinus tach 2. PPM insitu: normal functioning and setting. 3. Hx of vasovagal syncope 4. HLP 5. Subclinical hypothyroidism Recommendations 1. Start on toprol XL 25 mg daily 2. Advice to download device data daily or every other day in the next week 3. Follow up in office in 4 weeks. BAKARI LOWE APRN 17, 2017 14:06
[2017-01-19 14:11] VITALS: BP 151/91
--- NOTE | 2017-01-30 13:31 | PDOC3 ---
Discharge Summary Visit Information Date of Admission: Jan 18, 2017 Date of Discharge: Jan 19, 2017 Admitting Diagnosis: tachycardia, presyncope Final Diagnosis 1. Presyncope: reviewed interrogation report but no significant tachyarrhythmias. Device functioning is normal 2. SVT - provoked by stress test, none since admit 3. pacemaker: normal functioning and setting. 4. Hx of vasovagal syncope 5. HLP Problems Medical Problems: (1) Palpitation Status: Acute (2) Syncope Status: Acute Brief Hospital Course Allergies Allergies Coded Allergies Type Severity Reaction Last Updated Verified No Known Drug Allergies 04/20/15 No Brief Hospital Course Mr. James is a 71 old Admit after near syncope at [facility] stress, tachycardia 170s after test, he was lightheaded and dizzy and having palpitations with a heart rate greater than 180 while in the seated position. HR kept jumping from 105 to 70, but appeared sinus CV consult s/p pacemaker placed for symptomatic bradycardia cleared by CV for DC, and may return to work Discharge Information Condition at Discharge: Improved Follow Up: Weeks Disposition/Orders: D/C to Home Scheduled Aspirin (Aspirin Ec), 81 MG PO DAILY Lovastatin (Lovastatin), 1 TAB PO DAILY, (Reported) Metoprolol Succinate (Metoprolol Succinate ( Xl )), 1 TAB PO DAILY, (Reported) Multivitamin With Minerals (Multiple Vitamin), 1 EACH PO DAILY, (Reported) Tamsulosin Hcl (Flomax), 2 CAP PO HS, (Reported) Scheduled PRN Naproxen Sodium (Naproxen Sodium), 550 MG PO for PAIN, (Reported) Patient Instructions Patient Instructions > 30 min face to face eval toprol 25 daily SLIM KNIGHT MD Jan 30, 2017 13:31
== END 2017-01-19 15:00 | disposition home or self-care (01) | DRG 310 ==
LOC: ER 10:47 → CVICU 11:35 → 2 SOUTH 14:02
PROVIDERS: ADMIT Internal Medicine; ATTEND Internal Medicine
DX: I47.1 Supraventricular tachycardia (principal); I48.91 Unspecified atrial fibrillation; E03.9 Hypothyroidism, unspecified; E78.5 Hyperlipidemia, unspecified; M19.90 Unspecified osteoarthritis, unspecified site; Z95.0 Presence of cardiac pacemaker; Z90.79 Acquired absence of other genital organ(s)
CPT/HCPCS: 36415; 71010; 78452; 80048; 80053; 80076; 81001; 82553; 83690; 83735; 83880; 84443; 84484; 85025; 90686; 90732; 93005; 93017; 93306; 96374; 96375; 96376; A9500; J2785; J7030; 99285-25

== ENCOUNTER → 2017-11-14 | Outpatient (CLI) | payer MEDICARE ==
[~2017-11-14] MED LIST changes: +METO-239 PO; +METO25TA4 PO
[2017-11-14 09:23] LABS: BASO % 1 % (0-3); EOS # 0.1 x10^3/uL (0.0-0.7); EOS % 2 % (0-3); HEMATOCRIT 44.6 % (39.0-53.0); HEMOGLOBIN 15.5 g/dL (13.0-17.5); LYMPH % 29 % (24-48); MEAN CORPUSCULAR HEMOGLOBIN 33 pg (25-35); MEAN CORPUSCULAR HGB CONC 35 g/dL (31-37); MEAN CORPUSCULAR VOLUME 96 fL (79-100); MONO # 0.8 x10^3/uL (0.0-1.1); MONO % 11 % (0-9); NEUT # 3.9 x10^3uL (1.8-7.7); NEUT % 57 % (31-73); PLATELET COUNT 210 x10^3/uL (140-400); RED BLOOD COUNT 4.63 x10^6/uL (4.30-5.70); RED CELL DISTRIBUTION WIDTH 12.9 % (11.5-14.5); WHITE BLOOD COUNT 6.8 x10^3/uL (4.0-11.0)
[2017-11-14 09:47] LABS: CALCIUM 9.4 mg/dL (8.5-10.1); CREATININE 1.2 mg/dL (0.7-1.3); GFR 59.9; POTASSIUM 4.3 mmol/L (3.5-5.1)
== END | disposition home or self-care (01) ==
LOC: LAB 09:03
PROVIDERS: ATTEND Internal Medicine Cardiovascular Disease
DX: E78.5 Hyperlipidemia, unspecified (principal); E03.9 Hypothyroidism, unspecified; Z95.0 Presence of cardiac pacemaker; Z90.79 Acquired absence of other genital organ(s)
CPT/HCPCS: 36415; 80048; 85025

== ENCOUNTER → 2018-05-15 | Outpatient (CLI) | payer MEDICARE ==
--- NOTE | 2018-05-15 15:01 | CARD ---
MR#: [id number] Date of Study: 05/15/2018 Ordering Physician: DANIELA YAN, Referring Physician: DANIELA YAN, Tech: Ermelinda Atkins APPROVED REPORT EXAM: Two-dimensional and M-mode echocardiogram with Doppler and color Doppler. Other Information Quality : AverageHR: 62bpm INDICATION Arrhythmia RISK FACTORS Hyperlipidemia 2D DIMENSIONS RVDd2.8 (2.9-3.5cm)Left Atrium(2D)3.1 (1.6-4.0cm) IVSd1.3 (0.7-1.1cm)Aortic Root(2D)3.6 (2.0-3.7cm) LVDd5.0 (3.9-5.9cm)LVOT Diameter2.2 (1.8-2.4cm) PWd1.2 (0.7-1.1cm)IVSs2.5 (0.8-1.2cm) Aortic Valve AoV Peak Cordell.94.4cm/sAoV VTI19.7cm AO Peak GR.3.6mmHgLVOT Peak Cordell.75.5cm/s LVOT VTI 18.67cmAO Mean GR.2mmHg NAVARRO (VMAX)2.04gb0XGF (VTI)3.76cm2 Mitral Valve MV E Ildfcezl75.2cm/sMV DECEL [id number] MV A Xodlaoge37.0cm/sMV ANK33zz E/A Ratio1.2MVA (PHT)5.60cm2 TDI E/Lateral E'7.9E/Medial E'8.9 Pulmonary Valve PV Peak Ttcvwrpi532.3cm/sPV Peak Grad.5mmHg Tricuspid Valve RAP [id number] Peak Gr.17mmHg [id number] Pulmonary Vein S1 Eobuiwmg77.3cm/sD2 Qxoxnktr73.7cm/s PVa [id number] LEFT VENTRICLE The left ventricle is normal size. There is mild to moderate concentric left ventricular hypertrophy. The left ventricular systolic function is normal and the ejection fraction is mildly decreased. EF 4 5% There is mild global hypokinesis. Tissue Doppler imaging reveals moderate left ventricular diastol ic dysfunction. RIGHT VENTRICLE The right ventricle is normal size. There is normal right ventricular wall thickness. The right ventr icular systolic function is normal. There is a pacemaker/ICD lead in the right ventricle. ATRIA The left atrium size is normal. The right atrium size is normal. There is a pacemaker lead seen in th e right atrium. The interatrial septum is intact with no evidence for an atrial septal defect or gunn nt foramen ovale as noted on 2-D or Doppler imaging. AORTIC VALVE The aortic valve is sclerotic and with decreased leaflet motion. Doppler and Color Flow revealed no s ignificant aortic regurgitation. There is no significant aortic valvular stenosis. MITRAL VALVE The mitral valve is normal in structure and function. There is no evidence of mitral valve prolapse. There is no mitral valve stenosis. Doppler and Color-flow revealed trace mitral regurgitation. TRICUSPID VALVE The tricuspid valve is normal in structure and function. Doppler and Color Flow revealed trace tricus pid regurgitation. There is no tricuspid valve stenosis. PULMONIC VALVE The pulmonic valve is not well visualized. Doppler and Color Flow revealed trace pulmonic valvular re gurgitation. GREAT VESSELS The aortic root is normal in size. The IVC is normal in size and collapses >50% with inspiration. PERICARDIAL EFFUSION There is no evidence of significant pericardial effusion. Critical Notification Critical Value: No <Conclusion> The left ventricular systolic function is normal and the ejection fraction is mildly decreased. EF 45 % There is mild global hypokinesis. There is a pacemaker/ICD lead in the right ventricle. Signed by : Franco Callahan, Electronically Approved : 05/15/2018 15:01:26
== END | disposition home or self-care (01) ==
LOC: ECHO 08:18
PROVIDERS: ATTEND Internal Medicine Cardiovascular Disease
DX: I35.0 Nonrheumatic aortic (valve) stenosis (principal); E78.5 Hyperlipidemia, unspecified; I51.7 Cardiomegaly
CPT/HCPCS: 93306

== ENCOUNTER → 2018-06-07 | Outpatient (CLI) | payer MEDICARE ==
--- NOTE | 2018-06-07 12:56 | RAD ---
MR#: [id number] Date of Study: 06/07/2018 Ordering Physician: DANIELA YAN, Referring Physician: TONE GARCIA Tech: HANNY Bone, ARRT (R) (N) APPROVED REPORT Test Type: Exercise Stress Nurse/Tech: Miracle Tang RN Test Indications: low Ejection Fraction Cardiac History: bradycardia, PPM Medications: See Electronic Medical Record Medical History: See Electronic Medical Record Resting ECG: SR Resting Heart Rate: 84 bpm Resting Blood Pressure: 151/87mmHg Pretest Chest Pain: None Nurse/Tech Notes Lungs CTA, S1S2 Consent: The procedure was explained to the patient in lay terms. Informed consent was witnessed. Sami eout was entered into [employer]. History and Stress Test performed by Miracle Tang RN Stress Symptoms dyspnea POST EXERCISE Reason for Termination: Reached target heart rate Target HR: 127 Exercise duration: 13:26 min:sec, 3 Stage Exercise capacity: 10METs Max Blood Pressure: 178/78mmHg Blood Pressure response to exercise: Normal blood pressure response during stress. Heart Rate response to exercise: normal response Chest Pain: No. Arrhythmia: No. ST Change: No. INTERPRETATION Stress EKG Conclusion: Baseline EKG showed paced ventricular rhythm. Nondiagnostic changes at peak st ress. No arrhythmias. Imaging Protocol IMAGE PROTOCOL: Rest Tc-99m/stress Tc-99m 1 day Rest: Stress: Viability: Radiopharm.Tc99m IwxrnuzmpBh72y Sestamibi Jgoc20yLk 31mCi Img Date 06/07/2018 06/07/2018 Rest Admin Site:IV - Right AntecubitalAdministrator:MANUEL Farooq Stress Admin Site: IV - Right AntecubitalAdministrator: RT Delbert (R)(N) STRESS DATA End Diast. Vol.91.5mlLVEDV index BSA41.0ml End Syst. Vol.28.0mlLVESV index BSA12.5ml Myocardial Zjgl759.0gEject. Fvjfuraz44.0% Stress Scores Regional WT0.00Summed WT6.50 Regional WM0.00Summed WM1.50 Study quality was good. Left Ventricular size was Normal at Rest and Stress. Lung uptake was . Left Ventricular ejection fraction is 73%. The rest and stress images show normal perfusion, normal contraction and thickening. LV Perf. Quant 17 Seg. SSS1.00 17 Seg. SRS9.50 17 Seg. SDS0.00 Stress Defect Extent (% LAD)0.00Rest Defect Extent (% LAD)16.42Rev. Defect Extent (% LAD)0.00 Stress Defect Extent (% LCX) 0.00Rest Defect Extent (% LCX)0.95Rev. Defect Extent (% LCX)0.00 Stress Defect Extent (% RCA)0.00Rest Defect Extent (% RCA)25.00Rev. Defect Extent (% RCA)0.00 Stress Defect Extent (% GÉNESIS)0.00Rest Defect Extent (% GÉNESIS)18.75Rev. Defect Extent (% GÉNESIS)0.00 Conclusion 1. Treadmill exercise cardioisotope stress test did not show any evidence of ischemia or infarct. 2. Normal left ventricular systolic function with ejection fraction calculated at 73%. 3. Low risk for cardiac events. Signed by : Daniela Yan, Electronically Approved : 06/07/2018 12:55:42
== END | disposition home or self-care (01) ==
LOC: NM 09:02
PROVIDERS: ATTEND Internal Medicine Cardiovascular Disease
DX: I49.5 Sick sinus syndrome (principal)
CPT/HCPCS: 78452; 93017; 96374; 96376; A9500

== ENCOUNTER → 2019-08-15 | Outpatient (CLI) | payer MEDICARE ==
--- NOTE | 2019-08-15 09:14 | CARD ---
MR#: [id number] Date of Study: 08/15/2019 Ordering Physician: DANIELA YAN, Referring Physician: DANIELA YAN Tech: Varsha Miner RDCS APPROVED REPORT EXAM: Two-dimensional and M-mode echocardiogram with Doppler and color Doppler. Other Information Quality : Good INDICATION Sick Sinus Syndrome Surgery/Intervention Pacemaker: Date: 2009 2D DIMENSIONS RVDd3.1 (2.9-3.5cm)Left Atrium(2D)3.1 (1.6-4.0cm) IVSd1.2 (0.7-1.1cm)Aortic Root(2D)3.0 (2.0-3.7cm) LVDd4.2 (3.9-5.9cm)LVOT Diameter2.2 (1.8-2.4cm) PWd1.0 (0.7-1.1cm)LVDs2.9 (2.5-4.0cm) FS (%) 30.9 %SV46.6 ml Aortic Valve AoV Peak Cordell.80.7cm/sAoV VTI13.5cm AO Peak GR.2.6mmHgLVOT Peak Cordell.86.7cm/s AO Mean GR.2mmHgAVA (VMAX)4.08cm2 NAVARRO (VTI)5.50cm2 Mitral Valve MV E Eywgtzcz72.1cm/sMV DECEL SVIL396sv MV A Aaqpckio47.2cm/sE/A Ratio1.3 Tricuspid Valve TR P. Amtizwsm891mz/sRAP NPGVLWZJ6fpOf TR Peak Gr.33lmCuQTPY20shQa Pulmonary Vein S1 Lxtxfvup05.5cm/sD2 Whqchxlf28.8cm/s LEFT VENTRICLE The left ventricle is normal size. There is mild asymmetric septal hypertrophy. The left ventricular systolic function is normal and the ejection fraction is within normal range. The Ejection Fraction i s 55-60%. Apical motion consistent with pacemaker activation. Transmitral Doppler flow pattern is Gra de I-abnormal relaxation pattern. RIGHT VENTRICLE The right ventricle is normal size. The right ventricular systolic function is normal. There is a pac emaker lead in the right ventricle. ATRIA The left atrium size is normal. The right atrium size is normal. A pacemaker is seen in the right atr ium consistent with history. The interatrial septum is intact with no evidence for an atrial septal d efect or patent foramen ovale as noted on 2-D or Doppler imaging. AORTIC VALVE The aortic valve is mildly thickened but opens well. Doppler and Color Flow revealed no significant a ortic regurgitation. There is no significant aortic valvular stenosis. MITRAL VALVE The mitral valve is calcified but opens well. There is no evidence of mitral valve prolapse. There is no mitral valve stenosis. Doppler and Color-flow revealed trace mitral regurgitation. TRICUSPID VALVE The tricuspid valve is normal in structure and function. Doppler and Color Flow revealed trace tricus pid valve regurgitation. There is no tricuspid valve stenosis. PULMONIC VALVE The pulmonic valve is not well visualized. Doppler and Color Flow revealed no pulmonic valvular regur gitation. There is no pulmonic valvular stenosis. GREAT VESSELS The aortic root is normal in size. The ascending aorta is not well seen. The IVC is normal in size an d collapses >50% with inspiration. PERICARDIAL EFFUSION There is no evidence of significant pericardial effusion. Critical Notification Critical Value: No <Conclusion> The left ventricle is normal size. The left ventricular systolic function is normal and the ejection fraction is within normal range. The Ejection Fraction is 55-60%. Doppler and Color Flow revealed no significant aortic regurgitation. There is no significant aortic valvular stenosis. Doppler and Color-flow revealed trace mitral regurgitation. Doppler and Color Flow revealed trace tricuspid valve regurgitation. Signed by : Twin Moss MD Electronically Approved : 08/15/2019 09:13:53
== END ==
LOC: ECHO 07:43
PROVIDERS: ATTEND Internal Medicine Cardiovascular Disease
DX: I34.8 Other nonrheumatic mitral valve disorders (principal); I49.5 Sick sinus syndrome
CPT/HCPCS: 93306

== ENCOUNTER → 2019-09-15 | Outpatient (CLI) | payer MEDICARE ==
--- NOTE | 2019-09-16 08:56 | RAD ---
MR#: [id number] Date of Study: 09/15/2019 Ordering Physician: DANIELA YAN, Referring Physician: DANIELA YAN, Tech: Matias Gagnon MBA, RDMS, RVT, RDCS, RTR APPROVED REPORT Patient Location : OUT-PATIENT Indications Lower Extremity Edema : Bilateral Findings The right great saphenous vein measures 5.1 mm and the left great saphenous vein measures 5 mm. The bilateral greater and lesser saphenous veins did not show any evidence of reflux. Critical Notification Critical Value: No <Conclusion> 1. Negative for reflux in the bilateral greater and lesser saphenous veins Signed by : Franco Callahan, Electronically Approved : 09/16/2019 08:56:43
== END | disposition home or self-care (01) ==
LOC: US 08:44
PROVIDERS: ATTEND Internal Medicine Cardiovascular Disease
DX: R60.0 Localized edema (principal); L81.9 Disorder of pigmentation, unspecified
CPT/HCPCS: 93970

== ENCOUNTER → 2020-09-24 | Outpatient (CLI) | payer MEDICARE ==
[~2020-09-24] MED LIST changes: -ASPI-612 PO; +ASPI-886 PO
--- NOTE | 2020-09-24 11:09 | CARD ---
MR#: [id number] Date of Study: 09/24/2020 Ordering Physician: DANIELA YAN, Referring Physician: DANIELA YAN, Tech: Ermelinda Atkins [facility] APPROVED REPORT EXAM: Two-dimensional and M-mode echocardiogram with Doppler and color Doppler. Other Information Quality : AverageHR: 68bpm INDICATION Arrhythmia Sick Sinus Syndrome Surgery/Intervention Pacemaker: Date: 2009 RISK FACTORS Hyperlipidemia 2D DIMENSIONS Left Atrium(2D)3.1 (1.6-4.0cm)IVSd1.3 (0.7-1.1cm) Aortic Root(2D)3.5 (2.0-3.7cm)LVDd5.0 (3.9-5.9cm) LVOT Diameter2.1 (1.8-2.4cm)PWd1.3 (0.7-1.1cm) LVDs3.5 (2.5-4.0cm)FS (%) 29.8 % SV68.4 mlLVEF(%)56.7 (>50%) Aortic Valve AoV Peak Cordell.101.1cm/sAoV VTI20.6cm AO Peak GR.4.1mmHgLVOT Peak Cordell.88.4cm/s LVOT VTI 20.35cmAO Mean GR.2mmHg NAVARRO (VMAX)2.50gc0HAF (VTI)3.45cm2 Mitral Valve MV E Blzonecs28.1cm/sMV DECEL GOLF238lf MV A Rgvhpbgm59.0cm/sMV IEE79ol E/A Ratio0.9MVA (PHT)3.09cm2 TDI E/Lateral E'7.1E/Medial E'7.0 Pulmonary Valve PV Peak Tqgickxr58.8cm/sPV Peak Grad.4mmHg Pulmonary Vein S1 Brlufvst46.9cm/sD2 Puzuqmgw67.2cm/s PVa vvuxhljb085zvdv LEFT VENTRICLE The left ventricle is normal size. There is mild concentric left ventricular hypertrophy. The left ve ntricular systolic function is normal and the ejection fraction is within normal range. The Ejection Fraction is 55-60%. There is normal LV segmental wall motion. Transmitral Doppler flow pattern is Gra de II-pseudonormal filling dynamics. RIGHT VENTRICLE The right ventricle is normal size. There is normal right ventricular wall thickness. The right ventr icular systolic function is normal. There is a device lead in the right ventricle. ATRIA The left atrium size is normal. The right atrium size is normal. The interatrial septum is intact wit h no evidence for an atrial septal defect or patent foramen ovale as noted on 2-D or Doppler imaging. AORTIC VALVE The aortic valve is not well visualized. Doppler and Color Flow revealed trace aortic regurgitation. There is no significant aortic valvular stenosis. Calculated aortic valve area is 4.2 cm2 with maximu m pressure gradient of 5 mmHg and mean pressure gradient of 3 mmHg. MITRAL VALVE The mitral valve is normal in structure and function. There is no evidence of mitral valve prolapse. There is no mitral valve stenosis. Doppler and Color-flow revealed trace mitral regurgitation. TRICUSPID VALVE The tricuspid valve is normal in structure and function. Doppler and Color Flow revealed trace tricus pid valve regurgitation. There is no tricuspid valve stenosis. PULMONIC VALVE The pulmonic valve is not well visualized. Doppler and Color Flow revealed no pulmonic valvular regur gitation. GREAT VESSELS The aortic root is normal in size. The IVC is normal in size and collapses >50% with inspiration. PERICARDIAL EFFUSION There is no evidence of significant pericardial effusion. Critical Notification Critical Value: No <Conclusion> The left ventricle is normal size. The left ventricular systolic function is normal and the ejection fraction is within normal range. The Ejection Fraction is 55-60%. There is mild concentric left ventricular hypertrophy. Doppler and Color Flow revealed trace aortic regurgitation. There is no significant aortic valvular stenosis. Doppler and Color-flow revealed trace mitral regurgitation. Doppler and Color Flow revealed trace tricuspid valve regurgitation. Signed by : Twin Moss MD Electronically Approved : 09/24/2020 11:08:52
== END ==
LOC: ECHO 07:56
PROVIDERS: ATTEND Internal Medicine Cardiovascular Disease
DX: I51.7 Cardiomegaly (principal); I49.5 Sick sinus syndrome
CPT/HCPCS: 93306

== ENCOUNTER → 2021-04-28 | Outpatient (CLI) | payer MEDICARE ==
[~2021-04-28] MED LIST changes: +REGADENOSON 0.4 MG/5 ML DISP.SYRIN. IV ONE
--- NOTE | 2021-04-28 12:25 | RAD ---
MR#: [id number] Date of Study: 04/28/2021 Ordering Physician: DANIELA YAN Referring Physician: TONE GARCIA Tech: RT Allie Mandujano) (N) APPROVED REPORT Test Type: Pharmacological Stress Nurse/Tech: Miracle Tang RN Test Indications: sick sinus syndrome Cardiac History: PPM Medications: See Electronic Medical Record Medical History: See Electronic Medical Record Resting ECG: pacemaker spikes noted Resting Heart Rate: 68 bpm Resting Blood Pressure: 132/90mmHg Pretest Chest Pain: None Nurse/Tech Notes Lungs CTA, S1S2 Consent: The procedure was explained to the patient in lay terms. Informed consent was witnessed. Sami eout was entered into [facility]. History and Stress Test performed by RT Mary (R) (N) Pharm. Details Pharmacologic stress testing was performed using 0.4mg per 5ml of regadenoson given intravenously ove r 7-10 seconds. Stress Symptoms No chest pain or symptoms. POST EXERCISE Reason for Termination: Infusion complete Max HR: 105 bpm Max Blood Pressure: 154/97mmHg Blood Pressure response to exercise: Normal blood pressure response during stress. Heart Rate response to exercise: normal response Chest Pain: No. Arrhythmia: No. ST Change: No. INTERPRETATION Stress EKG Conclusion: Baseline EKG showed AV paced rhythm. Nondiagnostic changes at peak stress. No arrhythmias. Imaging Protocol IMAGE PROTOCOL: Rest Tc-99m/stress Tc-99m 1 day Rest: Stress: Viability: Radiopharm.Tc99m YozmudagdZn04b Sestamibi Dose10.1mCi 32mCi Duration 15min. 15min. Img Date 04/28/2021 04/28/2021 Inj-Img Inyk39avg. 60min. Rest Admin Site:IV - Right AntecubitalAdministrator:RT Mary (Jennifer)(N) Stress Admin Site: IV - Right AntecubitalAdministrator: RT Mary (R)(N) STRESS DATA End Diast. Vol.86.0mlLVEDV index BSA38.0ml End Syst. Vol.21.0mlLVESV index BSA9.0ml Myocardial Paxp235.0gEject. Lsxofuvi56.0% Stress Scores Regional WT1.00Summed WT11.00 Regional WM0.00Summed WM0.00 Study quality was good. Left Ventricular size was Normal at Rest and Stress. Lung uptake was . Left Ventricular ejection fraction is 76%. The rest and stress images show normal perfusion, normal contraction and thickening. LV Perf. Quant 17 Seg. SSS0.00 17 Seg. SRS13.00 17 Seg. SDS0.00 Stress Defect Extent (% LAD)0.00Rest Defect Extent (% LAD)23.10Rev. Defect Extent (% LAD)0.00 Stress Defect Extent (% LCX) 0.00Rest Defect Extent (% LCX)11.30Rev. Defect Extent (% LCX)0.00 Stress Defect Extent (% RCA)0.00Rest Defect Extent (% RCA)24.40Rev. Defect Extent (% RCA)0.00 Stress Defect Extent (% GÉNESIS)0.00Rest Defect Extent (% GÉNESIS)20.70Rev. Defect Extent (% GÉNESIS)0.00 Conclusion 1. Regadenoson cardioisotope stress test did not show any evidence of ischemia or infarct. 2. Normal left ventricular systolic function with ejection fraction calculated at 76%. 3. Low risk for cardiac events. Signed by : Daniela Yan, Electronically Approved : 04/28/2021 12:25:13
== END ==
LOC: NM 08:01
PROVIDERS: ATTEND Internal Medicine Cardiovascular Disease
DX: I49.5 Sick sinus syndrome (principal)
CPT/HCPCS: 78452; 93017; A9500; J2785

== ENCOUNTER 2021-07-26 08:27 | Day surgery (SDC) | payer MEDICARE ==
[~2021-07-26] VITALS: Ht 185.4 cm; Wt 100.0 kg
[2021-07-26] VITALS (7 sets, daily range): BP systolic 119–140; BP diastolic 70–90
[~2021-07-26 08:27] MED LIST changes: +HYDROmorphone 2 MG/ML INJ. IVP PRN; +IV RINGERS,LACTATED 1000ML 1,000 ML IV SCH; +MORPHINE SULFATE 2 MG/ML INJ. IVP PRN; +PROCHLORPERAZINE 10 MG/2 ML VIAL. IVP PRN; -REGADENOSON 0.4 MG/5 ML DISP.SYRIN. IV ONE; +fentaNYL PF VIAL 100 MCG/2 ML VIAL IVP PRN
[2021-07-26] MEDS ORDERED: ceFAZolin SODIUM 1 GM in IV NORMAL SALINE 100ML 100 ML IRR ONE (09:00)
[2021-07-26 09:10] LABS: HEMATOCRIT 47.7 % (39.0-53.0); HEMOGLOBIN 16.4 g/dL (13.0-17.5); RED BLOOD COUNT 4.89 x10^6/uL (4.30-5.70); RED CELL DISTRIBUTION WIDTH 13.4 % (11.5-14.5); WHITE BLOOD COUNT 6.5 x10^3/uL (4.0-11.0)
[2021-07-26 09:17] LABS: CREATININE 1.2 mg/dL (0.7-1.3); GFR 59.2; POTASSIUM 4.7 mmol/L (3.5-5.1)
[2021-07-26 09:28] LABS: PROTHROMBIN TIME PATIENT 13.4 SEC (11.7-14.0)
[2021-07-26] MEDS ORDERED: MIDAZOLAM HCL/PF 2 MG/2 ML VIAL. ONE (11:12)
[2021-07-26] MEDS ORDERED: fentaNYL PF VIAL 100 MCG/2 ML VIAL ONE (11:12)
[2021-07-26] MEDS ORDERED: LIDOCAINE 2%/EPI 1:100,000 20 ML VIAL. ONE (11:24)
[2021-07-26] MEDS ORDERED: MIDAZOLAM HCL/PF 2 MG/2 ML VIAL. IV ONE (12:00)
[2021-07-26] MEDS ORDERED: LIDOCAINE 2%/EPI 1:100,000 20 ML VIAL. IJ ONE (12:00)
[2021-07-26] MEDS ORDERED: fentaNYL PF VIAL 100 MCG/2 ML VIAL IV ONE (12:00)
--- NOTE | 2021-07-26 12:20 | PDOC ---
MODERATE SEDATION ASSESSMENT RISKS/ALTERNATIVES Risks/Alternatives Risks and alternatives of this type of sedation and procedure discussed with: RISK/ALTERNATIVES: Patient H & P ON CHART H & P H & P on chart and reviewed for co-morbid conditions and appropriate labs. H&P ON CHART: Yes STATUS PREG STATUS ASSESSED: N/A MEDS/ALLERGIES REVIEWED Meds/Allergies Reviewed Medications and Allergies including time and route of recently administered narcotics and sedatives. MEDS/ALLERGIES REVIEWED: Yes ASA RATING ASA RATING: III AIRWAY ASSESSMENT Airway Assessment Airway patency, oral function limitations, presence of caps, crowns, dentures, partials, and ability to extend neck assessed. AIRWAY ASSESSMENT: Yes MALLAMPATI SCORE MALLAMPATI SCORE: II PRE-SEDATION ASSESSMENT PRE-SEDATION ASSESSMENT: Yes DANIELA YAN MD July 26, 2021 12:20
--- NOTE | 2021-07-26 12:26 | CARD ---
MR#: [id number] Date of Study: 07/26/2021 Ordering Physician: DANIELA ROCKWELL, Referring Physician: DANIELA ROCKWELL, Tech: APPROVED REPORT PROCEDURES Medtronic dual-chamber permanent pacemaker generator change fl time: 0.1 min dose: 0.13 gycm2 moderate sedation: 27 min INDICATIONS Sick sinus syndrome s permanent pacemaker implantation presenting with battery depletion/p PROCEDURE After explaining the risks, benefits, and alternative options, informed consent was obtained from the patient. The patient was brought to the cardiac catheterization lab and the left chest and shoulder were prepp ed and draped in a sterile manner. IV conscious sedation was used throughout procedure with appropriate monitoring and was performed in the presence of a registered nurse who was an independent trained observer other than the physician p erforming the procedure. Specimen(s) Removed: No Estimated Blood loss: 5 cc's. 20 cc of 2% lidocaine was infiltrated to the skin and subcutaneous tissues for local anesthesia. An incision was made over the previous scar in the left infraclavicular fossa and using blunt dissection and cautery, the pocket was opened, the capsule exposed and opened and the previously placed generat or removed from the pocket. The leads were detached from the generator, interrogated, found to be fu nctioning well and were attached to a new Medtronic dual-chamber permanent pacemaker generator model W3 DR 01, serial number [id number]. This was placed in the pocket that was subsequently closed in 3 layers. Hemostasis was secured. The right ventricular lead showed a sensing amplitude of 4.5 mV, impedance of 680 ohms and a threshol d of 2 V. The right atrial lead showed a sensing amplitude of 2.3 mV, impedance of 437 ohms and a th reshold of 0.75 V. Patient tolerated the procedure well. There were no immediate complications CONCLUSION Successful Medtronic dual-chamber permanent pacemaker generator change for battery depletion Signed by : Daniela Rockwell, Electronically Approved : 07/26/2021 12:26:34
--- NOTE | 2021-07-26 13:22 | NUR ---
Discharge Note: KELLY FAULKNER Discharge instructions and discharge home medications reviewed with Patient and a copy given. All questions have been answered and understanding verbalized. The following instructions and handouts were given: adult moderate sedation and pacemaker battery change aftercare Discontinued lines and drains: Peripheral IV intact. Patient discharged to Home or Self Care withSpousevia Wheelchair
== END 2021-07-26 13:34 | disposition home or self-care (01) ==
LOC: SURG 08:27
PROVIDERS: ATTEND Internal Medicine Cardiovascular Disease
DX: Z45.010 Encounter for checking and testing of cardiac pacemaker pulse generator [battery] (principal); I49.5 Sick sinus syndrome; E78.00 Pure hypercholesterolemia, unspecified; N40.0 Benign prostatic hyperplasia without lower urinary tract symptoms; M19.90 Unspecified osteoarthritis, unspecified site; Z79.82 Long term (current) use of aspirin; Z79.899 Other long term (current) drug therapy; Z72.89 Other problems related to lifestyle; Z98.890 Other specified postprocedural states
CPT/HCPCS: 33228; 36415; 80048; 85027; 85610; 99152; 99153; C1785; J0690; J2250; J3010; J3490